=== PATIENT | male | born 1960 | race American Indian/Alaskan Native ===

== ENCOUNTER 2021-10-19 16:28 | Emergency (ER) | payer SELFPAY ==
[2021-10-19] MEDS ORDERED: SODIUM CHLORIDE 0.9% 1000 ML 1,000 ML IV ONE (17:13)
[2021-10-19] MEDS ORDERED: ASPIRIN 325 MG TAB PO ONE (17:18)
[2021-10-19] MEDS ORDERED: NITROGLYCERIN 2% OINT 1 GM TP ONE (17:18)
[2021-10-19] MEDS ORDERED: ONDANSETRON 4 MG/2 ML INJ IV ONE (17:18)
[2021-10-19] MEDS ORDERED: fentaNYL 100 MCG/2 ML INJ IV ONE (17:18)
--- NOTE | 2021-10-19 17:18 | Emergency Department Report ---
HPI - General Chief Complaint: Hyperglycemia Time Seen by Provider: 10/19/21 16:51 - HPI HPI: Room 23 The patient is a 60-year-old male present with chief complaint of chest pain shortness of breath difficulty urinating. The patient states all of his symptoms began today. Patient states he developed substernal chest pain has been constant and sharp in nature. Patient admits to shortness of breath and diaphoresis with this pain but denies nausea/vomiting. Patient states he also has cramping in his left hand he has pain. Patient mitts to an occasional pleuritic component. Patient denies history of fever or cough. Patient states he has been vaccinated against COVID receiving 2 doses. Of note the patient states he has not had his insulin in the past 3 to 4 months. Patient states today he noticed he had difficulty urinating from his though he has to force his stream. When asked if he feels as though he has urine retention currently the patient states no he was able to void just prior to this interview but required straining. Patient states he is never had a stress test or cardiac catheterization. Patient currently gets his chest pain a score of 8/10 ED Past Medical Hx - Past Medical History Hx Hypertension: Yes Hx Diabetes: Yes - Surgical History Past Surgical History?: No - Family History Family history: no significant - Social History Smoking Status: Never Smoker Substance Use Type: None (Denies illicit drug use), Alcohol (Every other day) ED Review of Systems ROS: Stated complaint: HYPERGLYCEMIA Other details as noted in HPI Constitutional: diaphoresis Eyes: denies: eye pain ENT: denies: throat pain Respiratory: shortness of breath. denies: cough Cardiovascular: chest pain Endocrine: no symptoms reported Gastrointestinal: denies: nausea, vomiting Genitourinary: other (Difficulty urinating) Musculoskeletal: denies: back pain Neurological: denies: headache Physical Exam - Physical Exam Vital Signs: Vital Signs 10/19/21 16:31 Temperature 98.6 F Pulse Rate 100 H Respiratory 18 Rate Blood Pressure 165/92 [Left] O2 Sat by Pulse 99 Oximetry Physical Exam: GENERAL: The patient is well-developed well-nourished male lying on stretcher not appearing to be in acute distress. [] HEENT: Normocephalic. Atraumatic. Extraocular motions are intact. Patient has moist mucous membranes. NECK: Supple. Trachea midline CHEST/LUNGS: Clear to auscultation. There is no respiratory distress noted. HEART/CARDIOVASCULAR: Regular. There is no tachycardia. There is no gallop rub or murmur. ABDOMEN: Abdomen is soft, nontender. Patient has normal bowel sounds. There is no abdominal distention. SKIN: There is no rash. There is no edema. There is no diaphoresis. NEURO: The patient is awake, alert, and oriented. The patient is cooperative. The patient has no focal neurologic deficits. The patient has normal speech. GCS 15 MUSCULOSKELETAL: There is no evidence of acute injury. ED Course Vital Signs 10/19/21 16:31 Temperature 98.6 F Pulse Rate 100 H Respiratory 18 Rate Blood Pressure 165/92 [Left] O2 Sat by Pulse 99 Oximetry ED Medical Decision Making - Lab Data Result diagrams: 10/19/21 17:21 10/19/21 17:21 Laboratory Tests 10/19/21 10/19/21 10/19/21 16:44 17:21 17:21 WBC 12.9 H RBC 4.82 Hgb 14.5 Hct 43.2 MCV 90 MCH 30 MCHC 34 RDW 13.5 Plt Count 252 Lymph % (Auto) 14.0 [place] % (Auto) 6.9 Eos % (Auto) 0.0 Baso % (Auto) 0.6 Lymph # (Auto) 1.8 [place] # (Auto) 0.9 H Eos # (Auto) 0.0 Baso # (Auto) 0.1 Seg Neutrophils % 78.5 H Seg Neutrophils # 10.2 H D-Dimer 170.42 VBG pH Sodium Potassium Chloride Carbon Dioxide Anion Gap BUN Creatinine Estimated GFR BUN/Creatinine Ratio Glucose POC Glucose 340 H Calcium Total Creatine Kinase CK-MB (CK-2) CK-MB (CK-2) Rel Index Troponin T NT-Pro-B Natriuret Pep 10/19/21 10/19/21 17:21 17:21 WBC RBC Hgb Hct MCV MCH MCHC RDW Plt Count Lymph % (Auto) [place] % (Auto) Eos % (Auto) Baso % (Auto) Lymph # (Auto) [place] # (Auto) Eos # (Auto) Baso # (Auto) Seg Neutrophils % Seg Neutrophils # D-Dimer VBG pH 7.380 Sodium 134 L Potassium 5.1 H Chloride 94.8 L Carbon Dioxide 20 L Anion Gap 24 BUN 25 H Creatinine 1.2 Estimated GFR > 60 BUN/Creatinine Ratio 21 Glucose 340 H POC Glucose Calcium 9.8 Total Creatine Kinase 709 H CK-MB (CK-2) 7.1 H CK-MB (CK-2) Rel Index 1.0 Troponin T < 0.010 NT-Pro-B Natriuret Pep 1236 H - Radiology Data Radiology results: report reviewed (Chest x-ray), image reviewed (Chest x-ray) interpreted by me: Chest x-ray-no definite focal infiltrates, no pneumothorax [facility] [address] [place] [address] XRay Report Signed Patient: GISELA QUINTEROS MR#: [id number] : 1960 Acct:[id number] Age/Sex: 60 / M ADM Date: 10/19/21 Loc: ED Attending Dr: Ordering Physician: KELLY PIÑA MD Date of Service: 10/19/21 Procedure(s): XR chest 1V ap Accession Number(s): [id number] cc: KELLY PIÑA MD Fluoro Time In Minutes: CHEST 1 VIEW INDICATION / CLINICAL INFORMATION: chest pain. COMPARISON: None available. FINDINGS: SUPPORT DEVICES: None. HEART / MEDIASTINUM: No significant abnormality. LUNGS / PLEURA: No significant pulmonary or pleural abnormality. No pneumothorax. ADDITIONAL FINDINGS: No significant additional findings. IMPRESSION: 1. No acute findings. Signer Name: Margoth Guardado MD Signed: 10/19/2021 7:12 PM Workstation Name: [id number] Transcribed By: JR Dictated By: Margoth Guardado MD Electronically Authenticated By: Margoth Guardado MD Signed Date/Time: 10/19/211911 DD/ 10 TD/TT: - Differential Diagnosis ACS, pericarditis, PE, GERD, DKA, hyperglycemia, urinary retention Critical care attestation.: If time is entered above; I have spent that time in minutes in the direct care of this critically ill patient, excluding procedure time. ED Disposition Clinical Impression: Chest pain Disposition: ADMITTED INPATIENT Is pt being admited?: Yes Does the pt Need Aspirin: Yes Condition: Stable Instructions: Nonspecific Chest Pain, Adult Referrals: PRIMARY CARE, [Primary Care Provider] - 3-5 Days Time of Disposition: 19:44 (Care transferred to hospitalist (Dr. Mora)) Heart Score - HEART Score History: Moderately suspicious EKG: Non-specific Age: 45-65 Risk factors: > 3 risk factors or hx of atherosclerotic disease Troponin: < normal limit HEART Score: 5 - EKG Read Time Time EKG Completed: 19:22 EKG Read Time: 19:30
[2021-10-19 18:07] LABS: BUN/Creatinine Ratio 21; Blood Urea Nitrogen 25 mg/dL (9-20); Calcium 9.8 mg/dL (8.4-10.2); Creatine Kinase MB 7.1 ng/mL (0.0-4.0); Hemolysis Index 67
[2021-10-19 18:19] LABS: Basophils # (Auto) 0.1 K/mm3 (0.0-0.1); Basophils % (Auto) 0.6 % (0.0-1.8); Hematocrit 43.2 % (35.5-45.6); Hemoglobin 14.5 gm/dl (11.8-15.2); Lymphocytes # (Auto) 1.8 K/mm3 (1.2-5.4); Mean Corpuscular HGB Conc 34 % (32-34); Mean Corpuscular Volume 90 fl (84-94); Monocytes # (Auto) 0.9 K/mm3 (0.0-0.8); Monocytes % (Auto) 6.9 % (0.0-7.3); Platelet Count 252 K/mm3 (140-440); Red Blood Count 4.82 M/mm3 (3.65-5.03); Red Cell Distribution Width 13.5 % (13.2-15.2)
--- NOTE | 2021-10-19 19:16 | XRay Report ---
CHEST 1 VIEW INDICATION / CLINICAL INFORMATION: chest pain. COMPARISON: None available. FINDINGS: SUPPORT DEVICES: None. HEART / MEDIASTINUM: No significant abnormality. LUNGS / PLEURA: No significant pulmonary or pleural abnormality. No pneumothorax. ADDITIONAL FINDINGS: No significant additional findings. IMPRESSION: 1. No acute findings. Signer Name: Margoth Guardado MD Signed: 10/19/2021 7:12 PM Workstation Name: [id number]
[2021-10-19] MEDS ORDERED: INSULIN REGULAR, HUMAN 100 UNITS/1 ML IV ONE (19:44)
[2021-10-19] MEDS ORDERED: LISINOPRIL 10 MG TAB PO ONE (19:49)
--- NOTE | 2021-10-19 19:50 | Consultation ---
History of Present Illness - Reason for Consult Consult date: 10/19/21 Medical Management Requesting physician: KELLY PIÑA - History of Present Illness 60 YO Male with DM, Obesity, hypertension, metabolic syndrome presents ED for evaluation. Patient reports "I ran out of my insulin". Patient states that he has been without insulin for the past 2 days due to inability to afford his previous insulin. Patient denies fever, chills, chest pain, palpitation, adductive cough, skin rash, recent contact, known exposure to COVID-19. Patient reports his reason for his visit was to get help with his insulin. Patient denies pain. Patient treated with IV insulin therapy, dietary education. Patient medically optimized. Patient does not meet admission criteria. Patient discharged home instructed to follow-up with his primary care physician within 1 week with blood glucose log as well as blood pressure log. Patient counseled regarding consistent carbohydrate diet, carbohydrate counting. Increase physical activity, weight loss, and daily exercise regimen. Patient acknowledges understanding instructions. Past History Past Medical History: diabetes, hypertension Past Surgical History: No surgical history (Reviewed), Other Social history: single. denies: smoking, alcohol abuse, prescription drug abuse Family history: diabetes, hypertension Medications and Allergies Allergies Allergy/AdvReac Type Severity Reaction Status Date / Time No Known Allergies Allergy Unverified 10/19/21 16:36 Home Medications Medication Instructions Recorded Confirmed Last Taken Type Aspirin [Aspirin BABY CHEW TAB] 81 mg PO QDAY #30 tab.chew 10/19/21 Unknown Rx Insulin NPH/Regular [Novolin 70/30] 10 unit SUB-Q TID #1 vial 10/19/21 Unknown Rx Syringe-Needle,Insulin,0.5 ml 1 each MC TID #1 box 10/19/21 Unknown Rx [Insulin Syringe/Needle 0.5 ML] amLODIPine 5 mg PO DAILY #30 tab 10/19/21 Unknown Rx lisinopriL [Zestril TAB] 10 mg PO QDAY #30 tablet 10/19/21 Unknown Rx Active Meds: Active Medications Insulin Human Regular (Insulin Regular, Human 100 Units/1 Ml) 8 units IV ONCE ONE Stop: 10/19/21 19:45 Lisinopril (Lisinopril 10 Mg Tab) 10 mg PO ONCE ONE Stop: 10/19/21 19:50 Review of Systems Constitutional: no weight loss, no weight gain, no fever, no chills Ears, nose, mouth and throat: no ear pain, no tinnitis, no nose pain, no nasal discharge Cardiovascular: high blood pressure, no chest pain, no orthopnea, no pa lpitations, no edema, no syncope, no lightheadedness, no shortness of breath, no dyspnea on exertion, no paroxysmal nocturnal dyspnea, no claudication, no phlebitis, no leg edema, no decreased exercise tolerance Respiratory: no cough, no cough with sputum, no excessive sputum, no hemoptysis, no shortness of breath, no dyspnea on exertion Gastrointestinal: no abdominal pain, no nausea, no vomiting, no diarrhea, no constipation, no change in bowel habits, no hematemesis Genitourinary Male: no hematuria, no flank pain, no discharge, no urinary hesitancy, no nocturia, no incontinence Rectal: no pain, no incontinence, no bleeding Musculoskeletal: no neck stiffness, no neck pain, no shooting arm pain, no low back pain, no leg numbness/tingling Integumentary: no rash, no pruritis, no sores, no wounds, no jaundice, no boils Neurological: no head injury, no paralysis, no weakness, no tingling, no seizures, no syncope Psychiatric: no anxiety, no memory loss, no change in sleep habits, no sleep d isturbances, no hypersomnia, no change in appetite, no change in libido Endocrine: no cold intolerance, no heat intolerance, no excessive thirst, no polydipsia, no polyuria, no nocturia, no excessive sweating, no flushing, no weight change Hematologic/Lymphatic: no easy bruising, no easy bleeding Allergic/Immunologic: no urticaria, no wheezing Exam - Constitutional Vitals: Temp Pulse Resp BP Pulse Ox 98.6 F 91 H 18 175/110 99 10/19/21 16:31 10/19/21 19:14 10/19/21 16:31 10/19/21 19:14 10/19/21 16:31 General appearance: Present: obese - EENT Eyes: Present: PERRL ENT: hearing intact, clear oral mucosa - Neck Neck: Present: supple, normal ROM - Respiratory Respiratory effort: normal Respiratory: bilateral: CTA - Cardiovascular Heart Sounds: Present: S1 & S2. Absent: rub, click - Extremities Extremities: pulses symmetrical, No edema Peripheral Pulses: within normal limits - Abdominal General gastrointestinal: Present: soft, non-tender, non-distended, normal bowel sounds Male genitourinary: Present: normal - Integumentary Integumentary: Present: clear, warm, dry - Musculoskeletal Musculoskeletal: gait normal, strength equal bilaterally - Psychiatric Psychiatric: appropriate mood/affect, intact judgment & insight - Neurologic Neurologic: CNII-XII intact, moves all extremities Results - Labs CBC & Chem 7: 10/19/21 17:21 10/19/21 17:21 Labs: Abnormal lab results 10/19/21 10/19/21 10/19/21 Range/Units 16:44 17:21 17:21 WBC 12.9 H (4.5-11.0) K/mm3 [place] # (Auto) 0.9 H (0.0-0.8) K/mm3 Seg Neutrophils % 78.5 H (40.0-70.0) % Seg Neutrophils # 10.2 H (1.8-7.7) K/mm3 Sodium 134 L (137-145) mmol/L Potassium 5.1 H (3.6-5.0) mmol/L Chloride 94.8 L (98-107) mmol/L Carbon Dioxide 20 L (22-30) mmol/L BUN 25 H (9-20) mg/dL Glucose 340 H (75-100) mg/dL POC Glucose 340 H (70-105) mg/dL Total Creatine Kinase 709 H (55-170) units/L CK-MB (CK-2) 7.1 H (0.0-4.0) ng/mL NT-Pro-B Natriuret Pep 1236 H (0-900) pg/mL Assessment and Plan - Patient Problems (1) Diabetes Current Visit: Yes Status: Acute Plan to address problem: Consistent carbohydrate diet, Accu-Chek, Novolin 70/30 protocol 3 times daily AC, blood glucose log, outpatient follow-up with primary care physician in 1 week with blood glucose log. (2) Hypertension Current Visit: Yes Status: Acute Qualifiers: Hypertension type: primary hypertension Qualified Code(s): I10 - Essential (primary) hypertension Plan to address problem: Resume prehospital antihypertensive therapy. Follow-up with primary care physician within 1 week with blood pressure log. (3) Noncompliance with medication regimen Current Visit: Yes Status: Acute Plan to address problem: Patient counseled regarding noncompliance with outpatient medication. Patient knowledges understanding instructions. (4) Preventative health care Current Visit: Yes Status: Acute Plan to address problem: Patient counseled regarding consistent carbohydrate diet, carbohydrate counting, meal planning, patient instructed to follow-up with his primary care physician within 1 week for all age and risk factor appropriate screening test. +30 minutes.
[2021-10-19] MEDS ORDERED: amLODIPine 5 MG TAB PO ONE (19:51)
[2021-10-19 21:10] VITALS: BP 122/58
--- NOTE | 2021-10-20 12:29 | Electrocardiograph Report ---
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
== END 2021-10-19 21:43 | disposition admitted as inpatient to this hospital (09) ==
LOC: ED 16:28
DX: R07.9 Chest pain, unspecified (principal); I10 Essential (primary) hypertension; E11.9 Type 2 diabetes mellitus without complications
CPT/HCPCS: 36415; 71045; 80048; 82550; 82553; 82805; 82962; 83880; 84484; 85025; 85379; 93005; 96361; 96374; 96375; 99284; J2405; J3010; J7030; Q9967; J1815